=== PATIENT | male | born 1945 | race Caucasian/White ===

== ENCOUNTER 2020-11-27 16:14 | Emergency (ER) | payer MEDICARE ==
--- NOTE | 2020-11-27 17:17 | CT ---
CT head noncontrast HISTORY: Dizziness. FINDINGS: There is no evidence of acute intracranial hemorrhage or infarct. Diffuse cortical atrophy. Mild chronic ischemic small vessel disease throughout the periventricular white matter of each cerebral hemisphere. There is no mass effect or shift of midline structures. Visualized paranasal sinuses remain well aerated. IMPRESSION : No acute abnormalities are demonstrated.
[2020-11-27] MEDS ORDERED: Meclizine HCl 25 MG TAB ONE (17:51)
== END 2020-11-27 17:58 | disposition home or self-care (01) ==
LOC: MADERS 16:14
DX: H81.13 Benign paroxysmal vertigo, bilateral (principal); I25.10 Atherosclerotic heart disease of native coronary artery without angina pectoris; E78.5 Hyperlipidemia, unspecified; I10 Essential (primary) hypertension; F17.210 Nicotine dependence, cigarettes, uncomplicated; I25.2 Old myocardial infarction
CPT/HCPCS: 70450

== ENCOUNTER 2021-06-20 14:26 | Emergency (ER) | payer MEDICARE ==
[~2021-06-20 14:26] MED LIST: Iopamidol 370 76% 125 ML VIAL FS ONE; Sodium Chloride 0.9% 100 ML BAG ONE
[2021-06-20 15:16] LABS: #Basophils 0.1 thou/uL (0.0-0.2); #Eosinphils 0.1 thou/uL (0.0-0.7); #Lymphocytes 3.5 thou/uL (1.20-3.40); #Monocytes 0.7 thou/uL (0.11-0.59); #Neutrophils 3.2 thou/uL (1.40-6.50); %Basophils 1.5 % (0.0-1.0); %Eosinophils 1.8 % (0.0-10.0); %Lymphocytes 45.6 % (21.0-51.0); %Monocytes 9.2 % (0.0-10.0); %Neutrophils 41.9 % (42.0-75.0); Hemoglobin 18.1 g/dL (14.0-18.0); Mean Corpuscular HGB CONC 31.2 g/dL (32.0-36.0); Mean Corpuscular Hemoglobin 29.8 pg (27.0-31.0); Mean Corpuscular Volume 95.5 fL (78.0-98.0); Mean Platelet Volume 9.5 fL (7.4-10.4); Platelet Count 200 thou/uL (130-400); RBC Distribution Width 13.3 % (11.5-14.5); Red Blood Cell (RBC) Count 6.08 mill/uL (4.70-6.10); White Blood Cell (WBC) Count 7.7 thou/uL (4.8-10.8)
[2021-06-20 15:34] LABS: ALT (SGPT) 64 U/L (8-55); AST (SGOT) 83 U/L (5-34); Albumin 4.1 g/dL (3.4-4.8); Alkaline Phosphatase 197 U/L (40-110); Anion Gap 15 mmol/L (10-20); BUN (Urea Nitrogen) 20 mg/dL (8.4-25.7); Bilirubin, Total 1.2 mg/dL (0.2-1.2); Calc. Creatinine Clearance 0 mL/min (70-130); Calcium 10.1 mg/dL (7.8-10.44); Carbon Dioxide 22 mmol/L (23-31); Chloride 102 mmol/L (98-107); Globulin 3.1 g/dL (2.4-3.5); Glucose 95 mg/dL (83-110); Potassium 4.3 mmol/L (3.5-5.1); Protein, Total 7.2 g/dL (5.8-8.1); Sodium 135 mmol/L (136-145)
[2021-06-20] MEDS ORDERED: Aspirin Chewable 81 MG TAB ONE (16:20)
[2021-06-20] MEDS ORDERED: Morphine 4 MG/ML VIAL ONE (16:56)
[2021-06-20 20:41] LABS: Troponin I 0.013 ng/mL (< 0.028)
[2021-06-21 01:59] LABS: Troponin I Less than 0.010 ng/mL (< 0.028)
== END 2021-06-21 05:30 | disposition short-term general hospital (02) ==
LOC: MADERS 14:26
DX: R07.9 Chest pain, unspecified (principal); R06.02 Shortness of breath; R11.0 Nausea; E78.5 Hyperlipidemia, unspecified; I10 Essential (primary) hypertension; I25.2 Old myocardial infarction; F17.210 Nicotine dependence, cigarettes, uncomplicated; Z79.82 Long term (current) use of aspirin; Z79.899 Other long term (current) drug therapy
CPT/HCPCS: 36415; 71045; 71275; 74174; 80053; 83880; 84484; 85025; 93005; 96374; J2270; J3490; Q9967

== ENCOUNTER 2021-07-21 11:02 | Emergency (ER) | payer MEDICARE ==
[2021-07-21] MEDS ORDERED: Morphine 4 MG/ML VIAL ONE (12:49)
== END 2021-07-21 13:35 | disposition home or self-care (01) ==
LOC: MADERS 11:02
DX: R10.11 Right upper quadrant pain (principal); I25.10 Atherosclerotic heart disease of native coronary artery without angina pectoris; I25.2 Old myocardial infarction; E78.5 Hyperlipidemia, unspecified; I10 Essential (primary) hypertension; F17.210 Nicotine dependence, cigarettes, uncomplicated; Z79.82 Long term (current) use of aspirin; Z79.899 Other long term (current) drug therapy
CPT/HCPCS: 96372; 99283; J2270

== ENCOUNTER 2021-07-22 10:38 | Emergency (ER) | payer MEDICARE ==
[2021-07-22] MEDS ORDERED: Iopamidol 370 76% 100 ML VIAL ONE (12:26)
[2021-07-22 13:17] LABS: Phosphorus 4.2 mg/dL (2.3-4.7)
[2021-07-22 13:19] LABS: Acetaminophen Less than 6.0 mcg/mL (10.0-30.0); Alcohol Less than 10 mg/dL (Less than 10); Salicylate Less than 8.0 mg/dL (15.0-30.0)
[2021-07-22 13:20] LABS: #Basophils 0.1 thou/uL (0.0-0.2); #Lymphocytes 2.1 thou/uL (1.20-3.40); #Monocytes 0.7 thou/uL (0.11-0.59); %Basophils 1.1 % (0.0-1.0); %Eosinophils 0.1 % (0.0-10.0); %Lymphocytes 17.8 % (21.0-51.0); %Monocytes 5.5 % (0.0-10.0); %Neutrophils 75.6 % (42.0-75.0); Hemoglobin 20.8 g/dL (14.0-18.0); Mean Corpuscular HGB CONC 31.6 g/dL (32.0-36.0); Mean Corpuscular Hemoglobin 30.4 pg (27.0-31.0); Mean Corpuscular Volume 96.1 fL (78.0-98.0); Platelet Count 281 thou/uL (130-400); Red Blood Cell (RBC) Count 6.85 mill/uL (4.70-6.10); White Blood Cell (WBC) Count 11.9 thou/uL (4.8-10.8)
[2021-07-22 13:23] LABS: ALT (SGPT) 87 U/L (8-55); AST (SGOT) 152 U/L (5-34); Albumin 4.5 g/dL (3.4-4.8); Alkaline Phosphatase 284 U/L (40-110); Anion Gap 22 mmol/L (10-20); BUN (Urea Nitrogen) 26 mg/dL (8.4-25.7); Bilirubin, Total 3.1 mg/dL (0.2-1.2); Calc. Creatinine Clearance 0 mL/min (70-130); Calcium 11.3 mg/dL (7.8-10.44); Carbon Dioxide 21 mmol/L (23-31); Chloride 94 mmol/L (98-107); Globulin 4.2 g/dL (2.4-3.5); Glucose 89 mg/dL (83-110); Lipase 14 U/L (8-78); Magnesium 2.2 mg/dL (1.6-2.6); Potassium 4.9 mmol/L (3.5-5.1); Protein, Total 8.7 g/dL (5.8-8.1); Sodium 132 mmol/L (136-145)
[2021-07-22] MEDS ORDERED: Meropenem 1 GM VIAL ONE ×2 (14:30→22:27)
[2021-07-22 15:34] LABS: Bilirubin Small (Negative); Blood, Urine Moderate (Negative); Clarity Clear (Clear); Glucose, Urine (Dipstick) Negative (Negative); Ketone, Urine Trace mg/dL (Negative); Leukocyte Negative (Negative); Nitrite Negative (Negative); Protein, Urine (Dipstick) Negative (Neg-Trace); Specific Gravity, Urine 1.025 (1.005-1.030)
[2021-07-22 15:35] LABS: Bacteria/HPF Rare-Few HPF (None Seen); Mucous/LPF 2+ LPF (<2+); Squamous Epithelial 0-3 HPF (0-3); WBC/HPF None Seen HPF (0-3)
[2021-07-22 15:37] LABS: Amphetamine Not Detected (NotDetected); Barbiturates Screen Not Detected (NotDetected); Benzodiazepine Screen Not Detected (NotDetected); Cocaine Metabolite Screen Not Detected (NotDetected); Medtox Control Line Valid? VALID (VALID); Methadone Not Detected (NotDetected); Methamphetamine Not Detected (NotDetected); Opiate Screen Detected (NotDetected); Oxycodone Screen Not Detected (NotDetected); Phencyclidine (PCP) Not Detected (NotDetected); THC/Cannabinoid Screen Not Detected (NotDetected); Tricyclic Screen Not Detected (NotDetected)
[2021-07-22 16:56] LABS: Base Excess-Venous -4.2 mmol/L (-2.0 to 3.0); Bicarbonate (HCO3v) 19.5 mmol/L (22.0-28.0); CO2 Tension (PvCO2) 32.7 mmHg (42.0-51.0); Calcium, Ionized 1.09 mmol/L (1.15-1.33); Chloride 105 mmol/L (98-107); Potassium 5.2 mmol/L (3.5-5.1); Sodium 131 mmol/L (138-145); T. Carbon Dioxide 20.5 mmol/L (22.0-28.0); vO2 Saturation-calc 99.7 % (60.0-85.0)
[2021-07-22 17:18] LABS: Lactic Acid 2.2 mmol/L (0.5-2.2)
[2021-07-22 17:59] LABS: SARS-CoV-2 NAA Rapid Test Not Detected (NotDetected)
[2021-07-22] MEDS ORDERED: Acetaminophen 650 MG Suppository ONE (20:43)
[2021-07-22] MEDS ORDERED: Sodium Chloride 0.9% 100 ML ONE ×2 (22:27→23:26)
[2021-07-22] MEDS ORDERED: Vancomycin HCl 500 MG VIAL ONE (23:26)
[2021-07-22] MEDS ORDERED: Sodium Chloride 0.9% 250 ML 250 ML ONE (23:26)
[2021-07-23 04:44] LABS: Band 1 % (5-11); Hemoglobin 17.8 g/dL (14.0-18.0); Lymphocytes 15 % (21-51); MDiff Complete? YES; Mean Corpuscular HGB CONC 31.8 g/dL (32.0-36.0); Mean Corpuscular Hemoglobin 30.2 pg (27.0-31.0); Mean Corpuscular Volume 95.2 fL (78.0-98.0); Mean Platelet Volume 8.8 fL (7.4-10.4); Monocytes 4 % (0-10); Neutrophil 80 % (42-75); Platelet Count 194 thou/uL (130-400); RBC Distribution Width 13.5 % (11.5-14.5); Red Blood Cell (RBC) Count 5.91 mill/uL (4.70-6.10)
[2021-07-23 04:45] LABS: Anion Gap 16 mmol/L (10-20)
[2021-07-23 04:47] LABS: ALT (SGPT) 68 U/L (8-55); AST (SGOT) 124 U/L (5-34); Albumin 3.3 g/dL (3.4-4.8); Alkaline Phosphatase 186 U/L (40-110); BUN (Urea Nitrogen) 21 mg/dL (8.4-25.7); Bilirubin, Total 2.4 mg/dL (0.2-1.2); Calc. Creatinine Clearance 0 mL/min (70-130); Calcium 9.8 mg/dL (7.8-10.44); Carbon Dioxide 16 mmol/L (23-31); Chloride 105 mmol/L (98-107); Globulin 2.9 g/dL (2.4-3.5); Glucose 86 mg/dL (83-110); Potassium 4.3 mmol/L (3.5-5.1); Protein, Total 6.2 g/dL (5.8-8.1); Sodium 133 mmol/L (136-145)
== END 2021-07-23 05:02 | disposition short-term general hospital (02) ==
LOC: MADERS 10:38
DX: A41.9 Sepsis, unspecified organism (principal); C22.7 Other specified carcinomas of liver; G93.40 Encephalopathy, unspecified; E87.2 Acidosis; I31.3 Pericardial effusion (noninflammatory); R74.01 Elevation of levels of liver transaminase levels; R00.0 Tachycardia, unspecified; Z20.822 Contact with and (suspected) exposure to COVID-19; I10 Essential (primary) hypertension; E78.5 Hyperlipidemia, unspecified; I25.10 Atherosclerotic heart disease of native coronary artery without angina pectoris; I25.2 Old myocardial infarction; F17.210 Nicotine dependence, cigarettes, uncomplicated; Z79.82 Long term (current) use of aspirin; Z79.899 Other long term (current) drug therapy
CPT/HCPCS: 70450; 71045; 74177; 80306; 80307; 82140; 82330; 82435; 82803; 83605; 83690; 83735; 84100; 84132; 84295; 85014; 87040; 93005; U0002; 51701; 80053; 81003; 81015; 84443; 85025; 96365; 96366; 96367; 96376; J2185; J3370; J3490; J7050; Q9967

== ENCOUNTER 2021-07-28 10:12 | Inpatient (IN) | payer OTHER, MEDICARE ==
[2021-07-29] MEDS ORDERED: Ondansetron ODT 4 MG TAB PO PRN (00:30)
[2021-07-29] MEDS ORDERED: hydrALAZINE 10 MG TAB PO PRN (01:19)
[2021-07-29 04:26] VITALS: BMI 28.0
[2021-07-29] MEDS: Lisinopril 5 MG TAB PO SCH ×2 (09:25→20:33)
[2021-07-29] MEDS: Aspirin 81 mg Enteric Coated Tablet PO SCH (09:25)
[2021-07-29] MEDS: Metoprolol Tartrate 50 MG TAB PO SCH ×2 (09:25→20:32)
[2021-07-29] MEDS: Ezetimibe 10 MG TAB PO SCH (09:26)
[2021-07-29] MEDS: LENVATINIB 4 MG PO SCH (09:31)
[2021-07-29] MEDS: Atorvastatin Calcium 10 MG TAB PO SCH (20:32)
[2021-07-29] MEDS ORDERED: Non-Formulary Item 1 EACH (Lisinopril [Zestril] 2.5 MG Tab) PO SCH (21:00)
[2021-07-30] MEDS: Acetaminophen 325 MG TAB PO PRN (08:00)
[2021-07-30] MEDS: Metoprolol Tartrate 50 MG TAB PO SCH ×2 (08:26→20:51)
[2021-07-30] MEDS: Ezetimibe 10 MG TAB PO SCH (08:26)
[2021-07-30] MEDS: Aspirin 81 mg Enteric Coated Tablet PO SCH (08:26)
[2021-07-30] MEDS: Lisinopril 10 MG TAB PO SCH (08:26)
[2021-07-30] MEDS: LENVATINIB 4 MG PO SCH (08:29)
[2021-07-30 09:52] LABS: SARS-CoV-2 PCR by NAA Not Detected (NotDetected)
[2021-07-30] MEDS: Atorvastatin Calcium 10 MG TAB PO SCH (20:51)
[2021-07-31] MEDS: Lisinopril 10 MG TAB PO SCH (09:03)
[2021-07-31] MEDS: Aspirin 81 mg Enteric Coated Tablet PO SCH (09:03)
[2021-07-31] MEDS: Ezetimibe 10 MG TAB PO SCH (09:03)
[2021-07-31] MEDS: Metoprolol Tartrate 50 MG TAB PO SCH ×2 (09:03→20:23)
[2021-07-31] MEDS: LENVATINIB 4 MG PO SCH (09:05)
[2021-07-31] MEDS: Atorvastatin Calcium 10 MG TAB PO SCH (20:23)
[2021-08-01] MEDS: Ezetimibe 10 MG TAB PO SCH (09:02)
[2021-08-01] MEDS: Aspirin 81 mg Enteric Coated Tablet PO SCH (09:02)
[2021-08-01] MEDS: Lisinopril 10 MG TAB PO SCH (09:02)
[2021-08-01] MEDS: Metoprolol Tartrate 50 MG TAB PO SCH ×2 (09:02→20:31)
[2021-08-01] MEDS: LENVATINIB 4 MG PO SCH (09:05)
[2021-08-01] MEDS: traMADol HCl 50 MG TAB PO PRN (17:27)
[2021-08-01] MEDS: Atorvastatin Calcium 10 MG TAB PO SCH (20:31)
[2021-08-02] MEDS: Aspirin 81 mg Enteric Coated Tablet PO SCH (08:36)
[2021-08-02] MEDS: traMADol HCl 50 MG TAB PO PRN (08:37)
[2021-08-02] MEDS: Lisinopril 10 MG TAB PO SCH (08:37)
[2021-08-02] MEDS: Metoprolol Tartrate 50 MG TAB PO SCH ×2 (08:37→20:56)
[2021-08-02] MEDS: Ezetimibe 10 MG TAB PO SCH (08:37)
[2021-08-02] MEDS: LENVATINIB 4 MG PO SCH (08:50)
[2021-08-02] MEDS: Atorvastatin Calcium 10 MG TAB PO SCH (20:55)
[2021-08-03] MEDS: Ezetimibe 10 MG TAB PO SCH (08:25)
[2021-08-03] MEDS: Acetaminophen 325 MG TAB PO PRN ×2 (08:25→20:38)
[2021-08-03] MEDS: Metoprolol Tartrate 50 MG TAB PO SCH ×2 (08:25→20:38)
[2021-08-03] MEDS: Aspirin 81 mg Enteric Coated Tablet PO SCH (08:25)
[2021-08-03] MEDS: Lisinopril 10 MG TAB PO SCH (08:25)
[2021-08-03] MEDS: LENVATINIB 4 MG PO SCH (08:26)
[2021-08-03] MEDS: Atorvastatin Calcium 10 MG TAB PO SCH (20:38)
[2021-08-04] MEDS: Ezetimibe 10 MG TAB PO SCH (08:27)
[2021-08-04] MEDS: Lisinopril 10 MG TAB PO SCH (08:27)
[2021-08-04] MEDS: Metoprolol Tartrate 50 MG TAB PO SCH ×2 (08:27→21:30)
[2021-08-04] MEDS: Aspirin 81 mg Enteric Coated Tablet PO SCH (08:27)
[2021-08-04] MEDS: LENVATINIB 4 MG PO SCH (08:28)
[2021-08-04] MEDS: traMADol HCl 50 MG TAB PO PRN (10:43)
[2021-08-04] MEDS: Atorvastatin Calcium 10 MG TAB PO SCH (21:30)
[2021-08-04] MEDS: Acetaminophen 325 MG TAB PO PRN (21:31)
[2021-08-05 00:01] VITALS: TEMP 98
[2021-08-05] MEDS: Ezetimibe 10 MG TAB PO SCH (08:57)
[2021-08-05] MEDS: Lisinopril 10 MG TAB PO SCH (08:57)
[2021-08-05] MEDS: Aspirin 81 mg Enteric Coated Tablet PO SCH (08:57)
[2021-08-05] MEDS: Metoprolol Tartrate 50 MG TAB PO SCH (08:58)
[2021-08-05] MEDS: LENVATINIB 4 MG PO SCH (10:51)
[2021-08-05 11:15] VITALS: BP 134/83
== END 2021-08-05 11:30 | disposition hospice, home (50) | DRG 948 ==
LOC: MADMS 10:12
PROVIDERS: ADMIT Family Medicine; ATTEND Family Medicine
DX: R53.81 Other malaise (principal); S32.000A Wedge compression fracture of unspecified lumbar vertebra, initial encounter for closed fracture; C22.0 Liver cell carcinoma; Z66 Do not resuscitate; Z51.5 Encounter for palliative care; I10 Essential (primary) hypertension; I25.10 Atherosclerotic heart disease of native coronary artery without angina pectoris; E78.5 Hyperlipidemia, unspecified; G89.29 Other chronic pain; M54.9 Dorsalgia, unspecified; W19.XXXA Unspecified fall, initial encounter; F17.210 Nicotine dependence, cigarettes, uncomplicated; F03.90 Unspecified dementia, unspecified severity, without behavioral disturbance, psychotic disturbance, mood disturbance, and anxiety; R26.81 Unsteadiness on feet; Y92.239 Unspecified place in hospital as the place of occurrence of the external cause; R26.89 Other abnormalities of gait and mobility; Z20.822 Contact with and (suspected) exposure to COVID-19; Z88.0 Allergy status to penicillin; Z91.81 History of falling; Z79.82 Long term (current) use of aspirin; Z79.899 Other long term (current) drug therapy; Z95.5 Presence of coronary angioplasty implant and graft; Z98.890 Other specified postprocedural states; Z75.1 Person awaiting admission to adequate facility elsewhere
CPT/HCPCS: U0003; U0005